=== PATIENT | female | born 1970 | race Caucasian/White ===

== ENCOUNTER 2021-04-18 08:59 | Emergency (ER) | payer MEDICAID ==
--- NOTE | 2021-04-18 09:23 | XRAY Report ---
PROCEDURE: Chest 1 View X-Ray INDICATIONS: Chest pain TECHNIQUE: One view of the chest was acquired. COMPARISON: None FINDINGS: Surgical changes and devices: None. Lungs and pleura: No pleural effusions or pneumothorax. Lungs are clear. Mediastinum: Mediastinal contours appear normal. Heart size is normal. Bones and chest wall: No suspicious bony lesions. Overlying soft tissues appear unremarkable. IMPRESSION: No acute pulmonary process. Reviewed by: Mindi Wheatley MD on 04/18/2021 9:22 AM [facility] Approved by: Mindi Wheatley MD on 04/18/2021 9:22 AM [facility] Station ID: [id number]
[2021-04-18 09:28] LABS: BASOPHILS # (AUTO) 0.1 10^3/uL (0.0-0.1); EOSINOPHILS # (AUTO) 0.1 10^3/uL (0.0-0.7); HGB - HEMOGLOBIN 14.5 g/dL (12.0-16.0); LYMPHOCYTES # (AUTO) 2.3 10^3/uL (1.5-3.5); LYMPHOCYTES % (AUTO) 45.7 %; MEAN CORPUSCULAR HEMOGLOBIN 30.7 pg (27.0-31.0); MEAN CORPUSCULAR HGB CONC 34.5 g/dL (32.0-36.0); MONOCYTES # (AUTO) 0.4 10^3/uL (0.0-1.0); MONOCYTES % (AUTO) 8.7 %; NEUTROPHILS # (AUTO) 2.1 10^3/uL (1.5-6.6); NEUTROPHILS % (AUTO) 42.4 %; PLT - PLATELET COUNT 238 10^3/uL (130-450); RED BLOOD COUNT 4.72 10^6/uL (4.20-5.40); RED CELL DISTRIBUTION WIDTH 11.7 % (12.0-15.0)
[2021-04-18] MEDS ORDERED: LORazepam 2 MG/ML VIAL IVP STA (09:29)
--- NOTE | 2021-04-18 09:30 | ED Physician Documentation ---
PD HPI CHEST PAIN - Stated complaint Stated Complaint: CHEST PX/SOA - Chief complaint Chief Complaint: Cardiac - History obtained from History obtained from: Patient - History of Present Illness Timing - onset: How many weeks ago (2) Timing - onset during: Rest Timing - duration: Weeks (2) Timing - details: Abrupt onset, Waxing and waning Quality: Other (thud to the chest) Location: Substernal, Left chest Radiation: Left upper extremity Improved by: Rest Associated symptoms: Shortness of air Similar symptoms before: Has not had sx before Recently seen: Not recently seen - Additional information Additional information: 51-year-old female reports that over the past 2 weeks she has been having episodes of a thump in her chest followed by some shortness of breath. She comes into the emergency department today hyperventilating and complaining of pain. She indicates that she has recently been in the past 3 weeks and that she has recently purchased a nursery. She did not find any of the seems to be stress or anxiety producing. I almost laughed. Review of Systems Constitutional: denies: Fever Nose: denies: Congestion Throat: denies: Sore throat Cardiac: reports: Chest pain / pressure, Palpitations. denies: Pedal edema, Calf pain Respiratory: reports: Dyspnea. denies: Cough, Wheezing GI: denies: Abdominal Pain, Nausea, Vomiting : denies: Dysuria, Frequency Skin: denies: Rash Musculoskeletal: denies: Neck pain, Back pain, Extremity pain Neurologic: denies: Generalized weakness, Focal weakness, Numbness PD PAST MEDICAL HISTORY - Present Medications Home Medications: Ambulatory Orders Medication Instructions Recorded Confirmed LORazepam [Ativan] 0.5 - 1 mg PO Q6H PRN #14 tablet 04/18/21 lisinopriL [Zestril] 5 mg PO DAILY #20 tablet 04/18/21 - Allergies Allergies/Adverse Reactions: Allergies Allergy/AdvReac Type Severity Reaction Status Date / Time acetaminophen [From Vicodin] Allergy Rash Verified 04/18/21 09:05 hydrocodone [From Vicodin] Allergy Rash Verified 04/18/21 09:05 PD ED PE NORMAL - Vitals Vital signs reviewed: Yes (Tachycardic and hypertensive) - General General: Alert and oriented X 3, Well developed/nourished, Other (Patient appears acutely anxious with dyspnea and tears to her eyes.) - HEENT HEENT: Atraumatic, PERRL, EOMI - Neck Neck: Supple, no meningeal sign, No bony TTP - Cardiac Cardiac: RRR, No murmur - Respiratory Respiratory: No respiratory distress, Clear bilaterally - Abdomen Abdomen: Normal bowel sounds, Soft, Non tender, Non distended, No organomegaly - Back Back: No CVA TTP, No spinal TTP - Derm Derm: Normal color, Warm and dry, No rash - Extremities Extremities: No deformity, No edema - Neuro Neuro: Alert and oriented X 3, 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, No motor deficit, No sensory deficit, Normal speech Eye Opening: Spontaneous Motor: Obeys Commands Verbal: Oriented GCS Score: 15 - Psych Psych: Normal mood, Normal affect Results - Vitals Vitals: Vital Signs - 24 hr 04/18/21 04/18/21 04/18/21 09:05 09:13 09:38 Temperature 36.9 C Heart Rate 118 H 116 H 82 Respiratory 26 H 21 18 Rate Blood Pressure 188/100 H 188/100 H 159/90 H O2 Saturation 99 98 100 04/18/21 04/18/21 10:00 10:30 Temperature Heart Rate 69 69 Respiratory 16 15 Rate Blood Pressure 156/89 H 154/77 H O2 Saturation 97 97 Oxygen O2 Source Room air - EKG (time done) 0904 Rate: Rate (enter#) (102) Rhythm: NSR Ischemia: Normal ST segments Compare to prior EKG: Old EKG unavailable Computer interpretation: Disagree with computer (computer reads PVC and this appears as artifact on the tracing. ) - Labs Labs: Laboratory Tests 04/18/21 04/18/21 04/18/21 09:20 09:20 09:20 WBC 5.0 RBC 4.72 Hgb 14.5 Hct 42.0 MCV 89.0 MCH 30.7 MCHC 34.5 RDW 11.7 L Plt Count 238 MPV 9.0 Neut # (Auto) 2.1 Lymph # (Auto) 2.3 Crockett # (Auto) 0.4 Eos # (Auto) 0.1 Baso # (Auto) 0.1 Absolute Nucleated RBC 0.00 Nucleated RBC % 0.0 D-Dimer Sodium 138 Potassium 3.9 Chloride 102 Carbon Dioxide 22 Anion Gap 14.0 H BUN 14 Creatinine 0.8 Estimated GFR (MDRD) 75 L Glucose 106 H Calcium 9.6 Total Bilirubin 0.8 AST 36 ALT 49 Alkaline Phosphatase 77 Troponin I High Sens 5.2 Total Protein 8.4 H Albumin 4.5 Globulin 3.9 Albumin/Globulin Ratio 1.2 Lipase 40 04/18/21 09:44 WBC RBC Hgb Hct MCV MCH MCHC RDW Plt Count MPV Neut # (Auto) Lymph # (Auto) [place]ckett # (Auto) Eos # (Auto) Baso # (Auto) Absolute Nucleated RBC Nucleated RBC % D-Dimer 200.1 Sodium Potassium Chloride Carbon Dioxide Anion Gap BUN Creatinine Estimated GFR (MDRD) Glucose Calcium Total Bilirubin AST ALT Alkaline Phosphatase Troponin I High Sens Total Protein Albumin Globulin Albumin/Globulin Ratio Lipase - Rads (name of study) chest Radiology: Prelim report reviewed (Impression: No acute pulmonary process.), EMP read indepedently, See rad report PD MEDICAL DECISION MAKING - ED course Complexity details: reviewed results, re-evaluated patient, considered differential, d/w patient ED course: 51-year-old female comes to the emerge department complaining of a thumping sensation in her chest followed by shortness of breath that is been happening episodically over the past 2 weeks. She comes to the department today hyperventilating with numbness to her fingers lips and toes. She is administered a dose of Ativan and when I returned to the room she appears much improved she continues to have some hypertension with a diastolic of over 90 her systolic reduces dramatically into the 130 range. She has been concerned about her blood pressure for some time and she certainly had hypertension when she arrived here and treatment was offered which she accepted. We have started her on lisinopril 5 mg daily Her cardiac work-up showed a normal sinus rhythm during episodes when she complained of this thumping in her chest her rhythm was sinus without change. I did not find PVCs. Her D-dimer was negative. Her saturation was normal her chest x-ray was normal. Her blood work was normal. I diagnosed the patient with panic attacks and hypertension and have offered some treatment for both of these. I have asked patient to follow-up with her primary within 3 weeks. Departure - Departure Disposition: Home, Self Care Clinical Impression: Atypical chest pain, Anxiety, Hyperventilation Hypertension Qualifiers: Hypertension type: unspecified Qualified Code(s): I10 - Essential (primary) hypertension Condition: Stable Instructions: ED Stress React, ED Hypertension New Begin Tx, ED Hyperventilation Syndrome, ED Panic Attack Follow-Up: [facility] [place] [Provider Group] Prescriptions: LORazepam [Ativan] 0.5 - 1 mg PO Q6H PRN #14 tablet PRN Reason: Anxiety lisinopriL [Zestril] 5 mg PO DAILY #20 tablet Comments: Nancy the testing done did not reveal any problem with your heart or lungs. It appears the symptoms you are having may be related to both your high blood pressure and anxiety. I prescribed some medication for you for anxiety to be used on a as needed basis. Also we have prescribed lisinopril to start at a low dose. Follow-up with the physicians at [facility] in [place] for recheck of your blood pressure and continuation of medications. Discharge Date/Time: 04/18/21 15:37
[2021-04-18 09:51] LABS: ALBUMIN 4.5 g/dL (3.2-5.5); ALBUMIN/GLOBULIN RATIO 1.2 (1.0-2.2); BILIRUBIN,TOTAL 0.8 mg/dL (0.2-1.0); CALCIUM 9.6 mg/dL (8.5-10.3); CREATININE 0.8 mg/dL (0.4-1.0); POTASSIUM 3.9 mmol/L (3.5-5.0); TOTAL PROTEIN 8.4 g/dL (6.7-8.2)
[2021-04-18 10:35] VITALS: BP 154/77
[2021-04-18] MEDS ORDERED: lisinopriL 5 MG TABLET ONE (11:37)
== END 2021-04-18 15:37 | disposition home or self-care (01) ==
LOC: ED 08:59
DX: R07.89 Other chest pain (principal); F41.0 Panic disorder [episodic paroxysmal anxiety]; R06.4 Hyperventilation; I10 Essential (primary) hypertension
CPT/HCPCS: 36415; 71045; 80053; 83690; 84484; 85025; 85379; 93005; 96374; 99284; A9270; J2060